=== PATIENT | female | born 1940 | race Caucasian/White ===

== ENCOUNTER 2018-05-13 16:09 | Inpatient (IN) | payer OTHER, MEDICARE ==
[2018-05-13] VITALS (74 sets, daily range): BP systolic 45–199; BP diastolic 26–130
[~2018-05-13] VITALS: Ht 157.5 cm; Wt 49.7 kg
--- NOTE | ~2018-05-13 | HC ---
[facility] [place] [address] CONSULTATION Name: GEOVANNY KAMARA Room #: 206- ADM IN M.R.#: [id number] Admission: 05/13/18 ������������������ Attend Phys: Malik Mann MD Discharge: ������������������ Date of : 38 Report #: [id number] THIS REPORT FOR: //name// CC: Malik Acevedo Box DATE OF SERVICE: 05/20/2018 HISTORY OF PRESENT ILLNESS: The patient is a 77-year-old white female admitted with dyspnea on exertion, chest pain, noted to have hypoxia down in the 80s. She apparently was noted to have an increase in her weight of 19 pounds and there was a question as to whether she was compliant with her Lasix and salt at home. She was admitted with acute hypoxic respiratory failure, had bilateral lung infiltrates and was intubated on 05/13/2018, thought that likely have had aspiration. She was noted to have a COPD exacerbation. She was placed on bronchodilator therapy, Solu-Medrol. Her course was complicated by atrial fibrillation for which she was on amiodarone. She was treated with antibiotics for aspiration pneumonia. She also has a recent history of a pulmonary embolism 4 months ago and continued on anticoagulation. She was able to be extubated on 05/17/2018. Has now been moved out of the ICU, but is significantly weak and is being seen in rehabilitation medicine consultation. Clinically, she has a critical illness myopathy. PAST MEDICAL HISTORY: Includes CHF and COPD. She had the prior pulmonary embolism as noted above. There is note of a history of diabetes, heart disease with cardiomyopathy. There is a history of gastric ulcers too. PAST SURGICAL HISTORY: Includes a gastric resection. MEDICATIONS: Please see the full medication listing. This includes vitamins, herbals, and supplements per report. ALLERGIES: No known drug allergies. HABITS: Past tobacco use for many years, quit approximately 4 months ago. No history of alcohol or recreational drug abuse is noted. SOCIAL HISTORY: Lives in a house alone, two steps in. Did not utilize gait aids, was not on oxygen. Daughter is noted to be a nurse practitioner. She does not know where her daughter works. REVIEW OF SYSTEMS: Complains of being overall weak. No headache, chest pain, shortness of breath, abdominal discomfort. Some dysuria, but discussed that she has the catheter in place. No focal extremity pain complaints. PHYSICAL EXAMINATION: [facility] [address] [place] [address] CONSULTATION Name: GEOVANNY KAMARA Room #: [facility] IN M.R.#: [id number] Admission: 05/13/18 ������������������ Attend Phys: Malik Mann MD Discharge: ������������������ Date of : 38 Report #: [id number] GENERAL: A 77-year-old white female, small statured, thin, a little groggy, but appropriate and able to follow basic 1 step commands. VITAL SIGNS: Her temperature is 98, pulse 66, respirations 18, blood pressure 134/53. Again, she did not know where her daughter worked. She has a latency to her responses, but can follow basic 1 step commands. She is on 2 liters nasal cannula. EXTREMITIES: She has functional range of motion of both upper extremities. Strength is grade 3+/5. DTRs are trace to 1. Lower extremities, no focal calf swelling, functional range of motion, strength is grade 3+/5. Trace to no distal lower extremity edema. Sit to stand is mod assist. Gait was mod assist with a front-wheeled walker, small steps. ASSESSMENT: A 77-year-old white female with the following problem list: 1. Critical illness myopathy. 2. 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 3. Acute hypoxic respiratory failure for which she was mechanically ventilated for multiple days in the ICU. 4. Bilateral pulmonary infiltrate. 5. Likely aspiration pneumonia. 6. Nonischemic cardiomyopathy. 7. Acute on chronic heart failure. 8. History of recent pulmonary embolism. 9. Past history of tobacco abuse until 4 months prior to admission. 10. Hypertension. 11. Chronic obstructive pulmonary disease. 12. Acute renal insufficiency, resolved. 13. Bipolar disorder. PLAN: The patient is a candidate for an acute [facility] inpatient rehabilitation stay. We can plan on admitting to the acute inpatient rehab góme[place] when medically cleared. Thank you for asking us to assist in this patient's care. ��������������������������������������������� ���������������������������������������� By: ��������������������������������������������� 1044 1130 Elliott Cristobal MD /DARLYN
[2018-05-13] MEDS ORDERED: ENTRESTO 24 MG1 EACH PO (16:19)
[2018-05-13] MEDS ORDERED: INVEGA6 MG PO (16:19)
[2018-05-13] MEDS ORDERED: POTASSIUM20 PO (16:20)
[2018-05-13] MEDS ORDERED: LASIX 40 MG TAB40 M2 PO (16:20)
[2018-05-13] MEDS ORDERED: XARELTO20 MG PO (16:20)
[2018-05-13] MEDS ORDERED: COREG6.25 MG PO (16:21)
[2018-05-13 16:47] LABS: ABSOLUTE NEUTROPHILS 7.6 thou/uL (1.4-8.2); BASOPHILS 1.4 % (0.0-2.0); HEMATOCRIT 44.7 % (37.0-47.0); HEMOGLOBIN 14.5 gm/dL (12.0-15.0); LYMPHOCYTES 46.8 % (24.0-44.0); MCH 33.4 pg (26.0-34.0); MCHC 32.4 g/dL (28.0-37.0); MONOCYTES 4.3 % (1.0-8.0); POLYS 47.5 % (36.0-66.0); RBC 4.34 mil/uL (4.20-5.00); RDW 14.4 % (10.5-14.5); WBC 16.1 thou/uL (4.0-11.0)
[2018-05-13 16:56] LABS: ANION GAP 14 mmol/L (7-16); BUN 27 mg/dL (7-18); CALCIUM 8.6 mg/dL (8.5-10.1); CHLORIDE 101 mmol/L (98-107); CO2 23 mmol/L (21-32); CREATININE 1.4 mg/dL (0.6-1.0); GLUCOSE 454 mg/dL (74-106); POTASSIUM 3.9 mmol/L (3.5-5.1); SODIUM 138 mmol/L (136-145)
[2018-05-13 17:03] LABS: ANISOCYTOSIS 1+; LARGE PLATELETS FEW; PLATELET COUNT 226 thou/uL (150-400); PLATELET ESTIMATE NORMAL
[2018-05-13 17:04] LABS: TROPONIN-I <0.06 ng/mL (<0.06)
[2018-05-13 17:21] LABS: BE(vivo) -12.2 mmol/L (-2 to +3); HCO3 20.2 mmol/L (22.0-26.0); PO2 89.5 mmHg (80.0-100.0); pH 7.036 (7.360-7.450); sO2 91.8 % (92.0-98.0)
[2018-05-13 19:36] LABS: BE(vivo) -7.7 mmol/L (-2 to +3); PCO2 48.7 mmHg (35.0-45.0); PO2 71.3 mmHg (80.0-100.0); sO2 91.3 % (92.0-98.0)
[2018-05-13 19:42] LABS: pH 7.232 (7.360-7.450)
--- NOTE | 2018-05-13 21:45 | NUR ---
CONSULTED TO PLACE A PICC. ORDER AND CONSENT NOTED. PATIENT BEGAN VOMITING AND ASPIRATED, PATIENT INTUBATED AND LINE PLACED. THE RIGHT UPPER ARM BASILIC WAS WIDLEY PATENT. A #5F TRIPLE LUMEN POWER PICC WAS PLACED AFTER A BEDSIDE TIMEOUT WAS COMPLETE. LINE WAS TRIMMED TO 37CM AND ADVANCED WITHOUT DIFFICULTY. A STAT CHEST XRAY ORDERED AND DR. MATTHEWS RELEASED LINE FOR USE
[2018-05-13 22:56] LABS: BE(vivo) -1.9 mmol/L (-2 to +3); HCO3 22.8 mmol/L (22.0-26.0); PCO2 38.9 mmHg (35.0-45.0); PO2 256.2 mmHg (80.0-100.0); pH 7.386 (7.360-7.450); sO2 99.6 % (92.0-98.0)
[2018-05-14] VITALS (62 sets, daily range): BP systolic 62–141; BP diastolic 32–67
[2018-05-14 05:27] LABS: HEMOGLOBIN 13.9 gm/dL (12.0-15.0); MCH 33.3 pg (26.0-34.0); MCHC 33.1 g/dL (28.0-37.0); MCV 100.6 fL (80.0-100.0); RBC 4.17 mil/uL (4.20-5.00); RDW 13.8 % (10.5-14.5)
[2018-05-14 05:40] LABS: BE(vivo) -3.9 mmol/L (-2 to +3); HCO3 19.4 mmol/L (22.0-26.0); PCO2 30.8 mmHg (35.0-45.0); PO2 142.7 mmHg (80.0-100.0); pH 7.417 (7.360-7.450); sO2 98.9 % (92.0-98.0)
--- NOTE | 2018-05-14 05:40 | NUR ---
ASSUMED CARE OF PATIENT FROM ER. ON BIPAP, MORE ALERT THAN EARLIER IN THE ER. FAMILY AT BEDSIDE. DR MATTHEWS CONSULTED AND NOTIFIED OF CRITICAL LABS IN ER. ORDERS OBTAINED TO REDRAW ABG AND PLACE PICC. ABG RESULTS CALLED TO [facility]. ORDERS RECEIVED. SHORTLY AFTER PATIENT STARTED VOMITING, INCREASED TACHYCARDIA AND TACHYPNEA. [facility] NOTIFIED. ORDERS TO INTUBATE ON HIS ARRIVAL. FAMILY UPDATED TO POC. [facility]RON TO [facility], PATIENT INTUBATED. BECAME HYPOTENSIVE, UNABLE TO PALPATE PULSE, CODE CALLED. PULSE THEN LOCATED WITHOUT IV MEDICINE. OG PLACED AND PICC. STARTED ON LEVO, PROPOFOL AND LASIX GTT. SEE DOCUMENTATION. ARTERIAL LINE ATTEMPTED BY DR MATTHEWS. UNABLE TO PLACE. MONITORING BLOOD PRESSURE CLOSELY THROUGH THE NIGHT. FAMILY AT BEDSIDE. AGREEABLE TO POC. O2 TITRATED PER PROTOCOL. LABS DRAWN THIS AM. WAITING ON RESULTS. WILL CALL ANY CRITICALS.
[2018-05-14 05:53] LABS: ALBUMIN 3.1 g/dL (3.4-5.0); CALCIUM 8.1 mg/dL (8.5-10.1); CREATININE 1.7 mg/dL (0.6-1.0); PHOSPHORUS 4.3 mg/dL (2.5-4.9); POTASSIUM 3.9 mmol/L (3.5-5.1); TOTAL BILIRUBIN 0.7 mg/dL (<0.1-1.0); TOTAL PROTEIN 7.4 g/dL (6.4-8.2)
--- NOTE | 2018-05-14 07:51 | EKG ---
[place] [address] [facility] [place] [address] ELECTROCARDIOGRAM REPORT Name: GEOVANNY KAMARA Room #: 250-P ADM IN M.R.#: [id number] ������������������ Admission: 05/13/18 ������������������ Attend Phys: Malik Mann MD Discharge: ������������������ Date of : 38 Report #: [id number] ����������������������������������������������������������������� [id number] THIS REPORT FOR: //name// [facility] ED Test Date: 2018-05-13 Test Time: 16:44:58 Pat Name: GEOVANNY KAMARA Department: Room: 250 Gender: F Information Systems Administrator: OTILIA : 1940 Requested By: Choco Gallardo Order Number: [id number] MD: King Yancey Measurements Intervals [place] Rate: 133 P: 79 GA: 139 QRS: 49 QRSD: 95 T: 259 QT: 317 QTc: 472 Interpretive Statements Sinus tachycardia LVH with secondary repolarization abnormality Poor R wave progression Baseline wander in lead(s) II,aVR,aVF No previous ECG available for comparison Electronically Signed On 05-14-2018 7:51:16 POURED WALL FOREMAN by King Yancey [email or web address] ��������������������������������������������� <ELECTRONICALLY SIGNED> ���������������������������������������� By: King Yancey MD, [facility] ��������������������������������������������� 05/14/18 0751 164 43 King Yancey MD, [facility] /EPI
--- NOTE | 2018-05-14 07:58 | EKG ---
[place] [address] [facility] [place] [address] ELECTROCARDIOGRAM REPORT Name: GEOVANNY KAMARA Room #: 250-P ADM IN M.R.#: [id number] ������������������ Admission: 05/13/18 ������������������ Attend Phys: Malik Mann MD Discharge: ������������������ Date of : 38 Report #: [id number] ����������������������������������������������������������������� [id number] THIS REPORT FOR: //name// [facility] Test Date: 2018-05-13 Test Time: 22:59:34 Pat Name: GEOVANNY KAMARA Department: Room: 250 P Gender: F Customer Insight Analyst: brigitte johns : 1940 Requested By: Yousif De La Vega Order Number: [id number] MD: King Yancey Measurements Intervals [place] Rate: 91 P: 88 CO: 133 QRS: 83 QRSD: 90 T: 228 QT: 379 QTc: 467 Interpretive Statements Sinus rhythm with atrial premature complexes Borderline right axis deviation LVH with secondary repolarization abnormality vs ischemia Anterior ST elevation, probably due LVH No previous ECG available for comparison Electronically Signed On 05-14-2018 7:58:02 CLINIC LPN by King Yancey [email or web address] ��������������������������������������������� <ELECTRONICALLY SIGNED> ���������������������������������������� By: King Yancey MD, [facility] ��������������������������������������������� 05/14/18 0758 2259 [id number] King Yancey MD, [facility] /EPI
--- NOTE | 2018-05-14 11:38 | 2DMMODE ---
[facility] [email or web address] [address] 2 D/M-MODE ECHOCARDIOGRAM Name: GEOVANNY KAMARA Room #: 250-P ADM IN M.R.#: [id number] ������������� Admission: 05/13/18 ������������� Attend Phys: Malik Mann MD Discharge: ��� ������������� ��� Date of : 38 Date of Service: 05/14/18 1138 �� Report #: [id number] �������� ��������������������������������������������[id number] THIS REPORT FOR: //name// APPROVED REPORT Study performed: 05/14/2018 10:53:52 EXAM: Comprehensive 2D, Doppler, and color-flow Echocardiogram Patient Location: ICU Room #: 250 Status: routine BSA: 1.51 HR: 102 bpm BP: 98/50 mmHg Rhythm: Sinus arrhythmia Other Information Study Quality: Good/low window Indications Short of breath, CHF, murmur. Hx: CHF EF 20-25%, non-ischemic cardiomyopathy, COPD, PE. 2D Dimensions RVDd: 25.01 mm IVSd: 9.41 (7-11mm) LVOT Diam: 20.40 (18-24mm) LVDd: 50.44 mm PWd: 9.46 (7-11mm) LVDs: 45.57 (25-40mm) Aortic Root: 26.93 mm Volumes Left Atrial Volume (Systole) Single Plane 4CH: 32.46 mL Single Plane 2CH: 48.22 mL LA ESV Index: 29.00 mL/m2 Aortic Valve AoV Peak Mason.: 1.85 m/s AO Peak Gr.: 13.65 mmHg LVOT Max P.83 mmHg LVOT Max V: 0.98 m/s ELIA Vmax: 1.73 cm2 Mitral Valve E/A Ratio: 0.6 MV Decel. Time: 220.18 ms [facility] [place] [address] [place] [address] 2 D/M-MODE ECHOCARDIOGRAM [facility] Room #: [address] [place] [address] IN .R.#: [id number] ������������� Admission: 05/13/18 ������������� Attend Phys: Malik Mann MD Discharge: ��� ������������� ��� Date of : 38 Date of Service: 05/14/18 1138 �� Report #: [id number] �������� ��������������������������������������������[id number] MV E Max Mason.: 0.45 m/s MV A Mason.: 0.78 m/s MV PHT: 63.85 ms IVRT: 72.66 ms Pulmonary Valve PV Peak Mason.: 1.33 m/s PV Peak Gr.: 7.05 mmHg Pulmonary Vein P Vein S: 0.46 m/s P Vein A: 0.34 m/s P Vein D: 0.43 m/s P Vein A Dur.: 90.0 msec P Vein S/D Ratio: 1.07 Tricuspid Valve TR Peak Mason.: 2.80 m/s RAP Estimate: 5.00 mmHg TR Peak Gr.: 31.30 mmHg PA Pressure: 36.00 mmHg Left Ventricle The left ventricle is normal size. There is normal left ventricular wall thickness. Left ventricular systolic function is severely decreased. LVEF is20- 25%. Mild diastolic dysfunction is present (impaired relaxation pattern). Right Ventricle The right ventricle is normal size. The right ventricular systolic function is low normal. Atria The left atrium size is normal. The right atrium size is normal. Aortic Valve The aortic valve is not well visualized, calcified but appears to have adequate excursion. No aortic regurgitation is present. Mitral Valve Mitral valve leaflets are mildly thickened. Mild mitral regurgitation. Tricuspid Valve The tricuspid valve is normal in structure. Mild to moderate tricuspid regurgitation. Estimated PAP is 35-40mmHg. Pulmonic Valve Pulmonic valve is not well visualized. [address] [address] 2 D/M-MODE ECHOCARDIOGRAM [facility]: [facility] Room #: 250-P [facility] IN M.R.#: [id number] ������������� Admission: 05/13/18 ������������� Attend Phys: Malik Mann MD Discharge: ��� ������������� ��� Date of : 38 Date of Service: 05/14/18 1138 �� Report #: [id number] �������� ��������������������������������������������[id number] Great Vessels The aortic root is normal in size. Ascending aorta is not well visualized. IVC is normal in size and collapses >50% with inspiration. Pericardium There is no pericardial effusion. <Conclusion> The left ventricle is normal size. Left ventricular systolic function is severely decreased. LVEF is20- 25%. Mild diastolic dysfunction is present (impaired relaxation pattern). The right ventricle is normal size. The left atrium size is normal. The aortic valve is not well visualized, calcified but appears to have adequate excursion. Mitral valve leaflets are mildly thickened. Mild mitral regurgitation. Mild to moderate tricuspid regurgitation. Estimated PAP is 35-40mmHg. The aortic root is normal in size. There is no pericardial effusion. ��������������������������������������������� <ELECTRONICALLY SIGNED> ���������������������������������������� By: Dong Maurer MD, FACC ��������������������������������������������� 05/14/18 1138 1138 1138 Dong Maurer MD, FACC /INF
--- NOTE | 2018-05-14 14:08 | NUR ---
Patient admits with COPD, Pulm edema, SOA, she is currently intubated and sedated. Met with dtr Sandra at bedside who reports she is DPOA, there are 7 children. Sandra reports patient has not been in hospital setting for years besides psych tx. She reports she last was inpatient psych 2 1/2 years ago at [facility]. Patient diagnosed with Bipolar. Dtr believes she has not been taking her medications correctly. Patient resides at independent home, all needs on one level. She ambulates independently, she does not drive. Dtr reports if she was to dc home today all she would need is assistance with her medications. At this time dtr anticipating she may need post acute care. She also may need assistive living in future. Dtr Sandra reports she worked with hospice in past and familiar with process of dc planning. Gave Sandra resources for post acute care and assisted living information.casemgt following.
--- NOTE | 2018-05-14 17:36 | EKG ---
[address] [address] ELECTROCARDIOGRAM REPORT Name: GEOVANNY KAMARA Room #: 250-P ADM IN M.R.#: [id number] ������������������ Admission: 05/13/18 ������������������ Attend Phys: Malik Mann MD Discharge: ������������������ Date of : 38 Report #: [id number] ����������������������������������������������������������������� [id number] THIS REPORT FOR: //name// [facility] Test Date: 2018-05-14 Test Time: 17:15:20 Pat Name: GEOVANNY KAMARA Department: Room: 250 P Gender: F Critical Care Nurse Specialist: Gail SHOEMAKER : 1940 Requested By: Sendy Suresh Order Number: [id number] MD: King Yancey Measurements Intervals [place] Rate: 113 P: 75 [place]: 122 QRS: 69 QRSD: 87 T: 239 QT: 355 QTc: 487 Interpretive Statements Sinus tachycardia Atrial premature complexes LVH with secondary repolarization abnormality vs ischemia Anterior ST elevation, probably due to LVH Borderline prolonged QT interval Compared to ECG 05/13/2018 22:59:34 No significant change was found Electronically Signed On 05-14-2018 17:36:05 BOBBIN HAULER by King Yancey [email or web address] ��������������������������������������������� <ELECTRONICALLY SIGNED> ���������������������������������������� By: King Yancey MD, [facility] ��������������������������������������������� 05/14/18 1736 1715 1715 King Yancey MD, [facility] /EPI
--- NOTE | 2018-05-14 19:16 | NUR ---
ASSESSMENTS DOCUMENTED. PT REMAINS ON VENT. NO CPAP TRAILS DONE TODAY. FOLLOWS COMMANDS WHEN SEDATION IS TURNED OFF. PROPOFOL GTT TO KEEP PT COMFORTABLE. LASIX GTT INFUSING. LEVO GTT TITRATED TO KEEP MAP >60. STARTED AMIO GTT AFTER EPISODE OF SVT AND NON-SUSTAINED RUN OF VTACH. GOOD URINE OUTPUT. FAMILY AT BEDSIDE THROUGH OUT THE DAY. BILATERAL WRIST RESTRAINTS. WILL CONTINUE TO MONITOR.
[2018-05-15] VITALS (59 sets, daily range): BP systolic 82–142; BP diastolic 40–70
--- NOTE | 2018-05-15 05:02 | NUR ---
ASSUMED CARE OF PATIENT AT 1900. RUNS OF ST NOTED, DR BETTENCOURT NOTIFIED. ORDERS RECIEVED FOR ADDITIONAL AMNIODERONE BOLUS. GIVEN ORDERED, HEART RATE IN THE 80'S-90'S. LEVO, PROPROFOL LASIX INFUSING. SEE GTT FLOWSHEET. DAUGHTER AT BEDSIDE, POC DISCUSSED, ALL QUESTIONS ANSWERED. PT TURNED Q2 WITH ORAL CARE GIVEN. NO S/S OF DISTRESS. WILL CONTINUE TO MONITOR.
[2018-05-15 08:30] LABS: BE(vivo) 0 mmol/L (-2 to +3); HCO3 24.3 mmol/L (22.0-26.0); PCO2 38.8 mmHg (35.0-45.0); PO2 109.9 mmHg (80.0-100.0); pH 7.415 (7.360-7.450); sO2 98.1 % (92.0-98.0)
--- NOTE | 2018-05-15 09:13 | NUR ---
If unable to extubate in next 24-48 hrs, recommend start glucerna 1.2 to reach final goal of 45ml/hr
[2018-05-15 10:12] LABS: HEMATOCRIT 39.8 % (37.0-47.0); HEMOGLOBIN 13.6 gm/dL (12.0-15.0); MCH 33.7 pg (26.0-34.0); MCHC 34.2 g/dL (28.0-37.0); MCV 98.8 fL (80.0-100.0); RBC 4.02 mil/uL (4.20-5.00); RDW 13.9 % (10.5-14.5); WBC 33.4 thou/uL (4.0-11.0)
[2018-05-15 10:21] LABS: POTASSIUM 3.1 mmol/L (3.5-5.1)
--- NOTE | 2018-05-15 10:42 | NUR ---
Met with patient who resides at home with spouse who is on oxygen, he has emphysema. Patient and spouse reside in independent home with all needs on one level in [facility]. Patient admits with chest pain. She is currently on oxygen she does not use a home. She reports independent with adls. She does not drive her spouse drives. She reports she has a public improvement inspector comes weekly to assist with cleaning and and any other needs identified. casemgt following for dc planning.
--- NOTE | 2018-05-15 20:46 | NUR ---
ASSESSMENTS DOCUMENTED. REMAINS ON VENT - FIO2 40%. PROPOFOL GTT FOR SEDATION. LEVO GTT TO KEEP MAP >60. LASIX GTT D/C'D PER CARIDOLOGY. NON-SUSTAINED RUNS OF VTACH THIS AFTERNOON. STARTED ON ELECTROLYTE PROTOCOL K+ REPLACED. AMIO GTT REMAINS AT 1. FAMILY AT BEDSIDE THROUGH OUT THE DAY.
--- NOTE | 2018-05-15 23:00 | NUR ---
2045 PT HAD SOME MORE NONSUSTAINED VTACH. NO OTHER SX/S WITH PT
[2018-05-16] VITALS (61 sets, daily range): BP systolic 103–134; BP diastolic 40–69
[2018-05-16 05:21] LABS: BE(vivo) -2.2 mmol/L (-2 to +3); HCO3 24.5 mmol/L (22.0-26.0); PCO2 49.6 mmHg (35.0-45.0); sO2 76.4 % (92.0-98.0)
[2018-05-16 05:23] LABS: PO2 44.9 mmHg (80.0-100.0); pH 7.311 (7.360-7.450)
--- NOTE | 2018-05-16 05:24 | NUR ---
PT REMAINS SEDATED WITH PROPOFOL ON THE VENT WITH 40% FIO2 SATS 99%. PT CONTINUES WITH LEVO GTT AND AMIO GTT. PT WITH CVP MONITORING BETWEEN 5-11. PT AM LABS TO BE DRAWN.
[2018-05-16 05:50] LABS: HEMATOCRIT 36.7 % (37.0-47.0); HEMOGLOBIN 12.3 gm/dL (12.0-15.0); MCH 33.1 pg (26.0-34.0); MCHC 33.5 g/dL (28.0-37.0); PLATELET COUNT 175 thou/uL (150-400); RDW 13.8 % (10.5-14.5); WBC 31.4 thou/uL (4.0-11.0)
[2018-05-16 05:59] LABS: CALCIUM 8.5 mg/dL (8.5-10.1); CREATININE 2.2 mg/dL (0.6-1.0); POTASSIUM 3.8 mmol/L (3.5-5.1)
[2018-05-16 07:07] LABS: ABSOLUTE NEUTROPHILS 26.7 thou/uL (1.4-8.2); ANISOCYTOSIS SLIGHT
[2018-05-16 08:31] LABS: BE(vivo) -0.9 mmol/L (-2 to +3); HCO3 24.7 mmol/L (22.0-26.0); PCO2 44.6 mmHg (35.0-45.0); PO2 132.2 mmHg (80.0-100.0); pH 7.362 (7.360-7.450); sO2 98.5 % (92.0-98.0)
[2018-05-16 11:41] LABS: BE(vivo) -1.6 mmol/L (-2 to +3); HCO3 26.9 mmol/L (22.0-26.0); PCO2 62.9 mmHg (35.0-45.0); PO2 90.7 mmHg (80.0-100.0); sO2 95.4 % (92.0-98.0)
[2018-05-16 12:35] LABS: pH 7.249 (7.360-7.450)
--- NOTE | 2018-05-16 19:31 | NUR ---
ASSESSMENTS DOCUMENTED. REMAINS OF AMIO GTT. PER DR. MATTHEWS REQUEST TO DECREASE TO 0.5 MG. UPDATED CARDIOLOGY AND AGREE WITH CHANGE. REMAINS ON PROPOFOL GTT. LEVO GTT TITRATED DOWN TO 5. FOLLOWS COMMANDS WHEN SEDATION TURNED OFF. ROSE PATENT. BLOOD SUGARS Q6HR. ORDERS TO START TUBE FEEDINGS PER DIETICIANS RECOMMENDATIONS. GOAL RATE 45 ML/HR. STARTED AT A RATE OF 10 ML/HR. FAMILY AT BEDSIDE THROUGH OUT THE DAY. WILL CONTINUE TO MONITOR.
[2018-05-17] VITALS (72 sets, daily range): BP systolic 100–142; BP diastolic 42–61
[2018-05-17 05:18] LABS: HCO3 28.5 mmol/L (22.0-26.0); PCO2 47.1 mmHg (35.0-45.0); PO2 135.1 mmHg (80.0-100.0); pH 7.399 (7.360-7.450); sO2 98.7 % (92.0-98.0)
[2018-05-17 06:44] LABS: HEMOGLOBIN 11.5 gm/dL (12.0-15.0); MCH 32.7 pg (26.0-34.0); MCHC 32.9 g/dL (28.0-37.0); MCV 99.3 fL (80.0-100.0); RBC 3.52 mil/uL (4.20-5.00); RDW 13.6 % (10.5-14.5); WBC 21.5 thou/uL (4.0-11.0)
[2018-05-17 06:50] LABS: CALCIUM 8.8 mg/dL (8.5-10.1); CREATININE 1.7 mg/dL (0.6-1.0); POTASSIUM 3.2 mmol/L (3.5-5.1)
[2018-05-17 11:36] LABS: BE(vivo) 1.5 mmol/L (-2 to +3); HCO3 25.9 mmol/L (22.0-26.0); PCO2 40.1 mmHg (35.0-45.0); PO2 129.3 mmHg (80.0-100.0); pH 7.428 (7.360-7.450); sO2 98.7 % (92.0-98.0)
[2018-05-17 14:53] LABS: POTASSIUM 3.5 mmol/L (3.5-5.1)
[2018-05-17] MEDS ORDERED: INVEGA SUS117 MG/0.7 IM (14:54)
--- NOTE | 2018-05-17 16:13 | NUR ---
FOLLOWIING FOR DC PLANNING. CLINICAL INFO REVIEWED. PT EXTUBATED THIS AFTERNOON AND ON NASAL CANNULA O2 AT PRESENT. THERAPY EVALS ORDERED WILL LIKELY NEED POST ACUTE REHAB OF SOME LEVEL.
[2018-05-18] VITALS (36 sets, daily range): BP systolic 98–146; BP diastolic 43–64
[2018-05-18 05:48] LABS: HEMATOCRIT 32.8 % (37.0-47.0); HEMOGLOBIN 10.8 gm/dL (12.0-15.0); MCH 32.8 pg (26.0-34.0); MCV 99.5 fL (80.0-100.0); RBC 3.29 mil/uL (4.20-5.00); RDW 13.8 % (10.5-14.5); WBC 20.6 thou/uL (4.0-11.0)
[2018-05-18 05:57] LABS: CALCIUM 8.9 mg/dL (8.5-10.1); CREATININE 1.3 mg/dL (0.6-1.0); POTASSIUM 3.9 mmol/L (3.5-5.1)
--- NOTE | 2018-05-18 06:00 | NUR ---
PT HAS SLEPT AT INTERVALS TONIGHT. CONFUSED. SHOUTING OUT THAT EVERYONE IS EVIL EXCEPT HER DAUGHTER. 800 CC UO THIS SHIFT. REMAINS IN SINUS RHYTHM HAD 2 RUNS OF SVT RATE 140 PT REMAINED ASYMPTOMATIC. DENIES PAIN BATHED WILL CONT TO MONITOR.
[2018-05-18 08:06] LABS: BE(vivo) 0.8 mmol/L (-2 to +3); HCO3 24.7 mmol/L (22.0-26.0); PCO2 37.1 mmHg (35.0-45.0); pH 7.441 (7.360-7.450); sO2 94.5 % (92.0-98.0)
--- NOTE | 2018-05-18 15:05 | NUR ---
PT PROGRESSING TODAY. ALERT TO PERSON, PLACE. COOPERATIVE ESPECIALLY WITH THE ENCOURAGMENT OF FAMILY MEMBERS AT BEDSIDE. SR WITH RARE PAC'S. SVT RESOLVED. 2L/NC, ENCOURAGED DEEP BREATHING/COUGH. TAKING SIPS OF ICE CHIPS/WATER IN AM, FAMILY MEMBER NOTED PT HAD A SLIGHT COUGH. IMMEDIATELY STARTED ON THICKENED LIQUIDS, NO FURTHER COUGH NOTED. ROSE WITH ADEQUATE URINE OUTPUT. DR. LORENZO CULP'D TRANSFER. DR. BYRON CULP'Celina TRANSFER TO CCU OR CC/TELE BASED ON PT EXTUBATION YESTERDAY, AMIODARONE INFUSING FOR PREVIOUS SVT WITH PLAN TO SWITCH PT TO AMIODARONE PO. BIPAP AT HS PRN. FAMILY UPDATED.
--- NOTE | 2018-05-18 18:10 | NUR ---
REPORT GIVEN TO CARLITA BRYAN. PT TRANSFERRED TO CCU PER BED ACCOMPANIED BY RN, ICU TAX LAWYER/TECH AND FAMILY MEMBER. PT CONSUMING FULL LIQUIDS AND THICKENED NEEDED. NO SWALLOWING DIFFICULTIES AND NO COUGH AT ALL.
--- NOTE | 2018-05-18 18:40 | NUR ---
PT CARE ASSUMED APPROX 1830. PT ALERT AND ORIENTED TO SELF AND PLACE. MOOD IS PLEASANT. VSS. DAUGHTER AT BEDSIDE AND ASSISTED PT WITH EATING. AMIO PO GIVEN BY ICU NURSE AND GTT STOPPED AT THIS TIME. 2LNC IN PLACE. NO DISTRESS NOTED.
--- NOTE | 2018-05-19 04:32 | NUR ---
ASSUMED CARE AT 1900. PT AO X 2. DAUGTHER AT BEDSIDE. PT DENIES PAIN, N/V/D. AMIO DRIP TURNED OFF AT 1930. PT ON ORAL AMIO. PT IS SR ON MONITOR WITH PACs AND PVCs. DENIES ANY SOB. PT HAS DENTURES BUT DO NOT FIT PERFECT. PT CONTINUES WITH ABX. OTHER ASSESSMENTS DOCUMENTED. WILL CONTINUE TO FOLLOW POC/.
[2018-05-19 04:58] VITALS: BP 123/55
[2018-05-19 05:48] LABS: CALCIUM 8.6 mg/dL (8.5-10.1); CREATININE 1.2 mg/dL (0.6-1.0); POTASSIUM 3.8 mmol/L (3.5-5.1)
[2018-05-19 08:08] VITALS: BP 141/64
[2018-05-19 10:12] LABS: BE(vivo) 2.9 mmol/L (-2 to +3); HCO3 26.5 mmol/L (22.0-26.0); PO2 78.8 mmHg (80.0-100.0); pH 7.473 (7.360-7.450); sO2 96.4 % (92.0-98.0)
[2018-05-19 11:51] VITALS: BP 140/49
[2018-05-19 15:37] VITALS: BP 147/55
[2018-05-19 20:02] VITALS: BP 138/68
--- NOTE | 2018-05-19 20:11 | NUR ---
ASSUMED CARE OF PT AT SHIFT CHANGE. ASSESSMENTS CHARTED. MEDS GIVEN PER MAY. PT ALERT TO SELF, PLACE, SITUATION, FORGETFUL OF TIME. VSS, NO C/O PAIN. PHYSICIAN ROUNDED ON PT THIS AM, ORDERED CT OF HEAD, ABG'S--SEE RESULTS. NO NEW ORDERS. NO S/SX OF CARDIAC OR RESP DISTRESS NOTED. O2 SATS REMAIN WNL ON 2L O2. FAMILY AT BEDSIDE THROUGHOUT SHIFT, UPDATED AND AWARE OF PT CARE. REDNESS REMAINS ON PT BUTTOCK AREA, Q2 TURNS ENFORCED AND BARRIER CREAM APPLIED. DENIES CONCERNS AT THIS TIME. WILL CONTINUE TO MONITOR AND FOLLOW POC.
--- NOTE | 2018-05-20 02:44 | NUR ---
TOOK OVER CARE OF PT AROUND 2129. PT ALERT2-3, FORGETFUL, DENIES PAIN OR NAUSEA. DAUGHTER AT BEDSIDE THROUGHOUT NIGHT. Q 2 TURNS, BARRIER CREAM TO BOTTOM. TOLERATING FULL LIQUID MECTAR THICK, MEDS CRUSHED. SERAQUIL STARTED THIS EVENING PER ORDERS. WILL CONTINUE TO MONITOR AND WITH POC.
[2018-05-20 04:22] VITALS: BP 124/59
[2018-05-20 07:51] VITALS: BP 134/53
[2018-05-20 09:06] LABS: ALBUMIN 2.3 g/dL (3.4-5.0); CALCIUM 8.8 mg/dL (8.5-10.1); CREATININE 1.1 mg/dL (0.6-1.0); POTASSIUM 3.8 mmol/L (3.5-5.1); TOTAL BILIRUBIN 0.5 mg/dL (<0.1-1.0); TOTAL PROTEIN 6.9 g/dL (6.4-8.2)
[2018-05-20] MEDS ORDERED: PACERONE 200 M200 M1 PO (11:56)
[2018-05-20] MEDS ORDERED: AUGMENTIN 875-1 EACH PO (11:56)
[2018-05-20] MEDS ORDERED: PULMICORT0.5 MG/21 INH (11:56)
[2018-05-20] MEDS ORDERED: SEROQUEL 25 MG25 M1 PO (11:56)
[2018-05-20] MEDS ORDERED: PREDNISONE 10 M10 M1 PO (11:56)
--- NOTE | 2018-05-20 14:22 | NUR ---
PT. ACCEPTED TO 5N AND WILL DISCHARGE TO ACUTE REHAB (5N) TODAY. DC ORDERS FINALIZED AND 5N NOTIFIED.
--- NOTE | 2018-05-20 14:30 | NUR ---
Patient accepted to 5N. patient initially not agreeable but spoke with dtr who sp with patient and patient now agreeable to 5n. 5N liason to call dtr Sandra to discuss acute rehab.
[2018-05-20 16:03] VITALS: BP 138/64
--- NOTE | 2018-05-20 17:02 | NUR ---
ASSUMED CARE OF PT AT 0645. PT LETHARGIC FROM SEROQUEL DOSE SLEEP AID. DAUGHTER/DPOA DOES NOT WANT PT TO HAVE ANY MORE. WORKED WITH THERAPY, KEEP ON THICK LIQUIDS, OK TO START PUREED DIET. PT TO TX TO REHAB.
== END 2018-05-20 17:00 | DRG 208 ==
LOC: ER 16:09 → EROBS 17:41 → ICU 17:41 → 2N 05-18 18:18
PROVIDERS: Internal Medicine Cardiovascular Disease; Nurse Practitioner; Nurse Practitioner Adult Health; Pediatrics; ADMIT Hospitalist
PROC: 5A09357 Assistance with Respiratory Ventilation, Less than 24 Consecutive Hours, Continuous Positive Airway Pressure (ICD-10-PCS; principal; 2018-05-13)
PROC: 02HV33Z Insertion of Infusion Device into Superior Vena Cava, Percutaneous Approach (ICD-10-PCS; principal; 2018-05-13)
PROC: 03HY32Z Insertion of Monitoring Device into Upper Artery, Percutaneous Approach (ICD-10-PCS; principal; 2018-05-13)
PROC: 4A133J1 Monitoring of Arterial Pulse, Peripheral, Percutaneous Approach (ICD-10-PCS; principal; 2018-05-13)
PROC: 4A133B1 Monitoring of Arterial Pressure, Peripheral, Percutaneous Approach (ICD-10-PCS; principal; 2018-05-13)
PROC: 0BH17EZ Insertion of Endotracheal Airway into Trachea, Via Natural or Artificial Opening (ICD-10-PCS; principal; 2018-05-13)
PROC: 5A1945Z Respiratory Ventilation, 24-96 Consecutive Hours (ICD-10-PCS; principal; 2018-05-13)
DX: J96.21 Acute and chronic respiratory failure with hypoxia (principal); I50.23 Acute on chronic systolic (congestive) heart failure; J69.0 Pneumonitis due to inhalation of food and vomit; N17.9 Acute kidney failure, unspecified; I42.9 Cardiomyopathy, unspecified; G72.81 Critical illness myopathy; J44.1 Chronic obstructive pulmonary disease with (acute) exacerbation; I47.1 Supraventricular tachycardia; J96.22 Acute and chronic respiratory failure with hypercapnia; I25.10 Atherosclerotic heart disease of native coronary artery without angina pectoris; I48.91 Unspecified atrial fibrillation; I11.0 Hypertensive heart disease with heart failure; F31.9 Bipolar disorder, unspecified; E87.6 Hypokalemia; E11.9 Type 2 diabetes mellitus without complications; Z87.11 Personal history of peptic ulcer disease; Z86.711 Personal history of pulmonary embolism; Z87.891 Personal history of nicotine dependence; Z79.01 Long term (current) use of anticoagulants; Z79.899 Other long term (current) drug therapy
CPT/HCPCS: 10078; 10081; 27000; 85026

== ENCOUNTER 2018-05-20 14:46 | Inpatient (IN) | payer OTHER, MEDICARE ==
[~2018-05-20] VITALS: Ht 142.2 cm; Wt 46.9 kg
--- NOTE | ~2018-05-20 | PLAN ---
[facility] [place] [address] REHAB UNIT PLAN OF CARE Name: GEOVANNY KAMARA Room #: 503-P ADM IN M.R.#: [id number] Admission: 05/20/18 ������������������ Attend Phys: Elliott Cristobal MD Discharge: ������������������ Date of : 36 Report #: [id number] THIS REPORT FOR: //name// CC: Elliott Cristobal Curtis Box DATE OF SERVICE: 05/21/2018 HISTORY AND PHYSICAL/POSTADMISSION PHYSICIAN EVALUATION Please see my full consult note dictation from yesterday. Also, see Rosalee Razo nurse practitioner dictation from earlier today. The patient originally was admitted with acute hypoxic respiratory failure, was on the mechanical ventilator for multiple days, bilateral pulmonary infiltrates, likely aspiration, acute on chronic heart failure. Treated on antibiotics, steroid taper along with diuretics. She had some dysphagia and is on a special diet with speech involved. She is on pureed nectar thick liquid diet. 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 She has been admitted for acute in-hospital inpatient rehabilitation. Please see the past medical history, habits, allergies, code status all as noted. MEDICATIONS: Reviewed and include vitamins, herbals, and supplements as well per report. SOCIAL HISTORY: As noted. She lives alone, 2 steps in, was not on any oxygen premorbidly. She was independent with ADLs and some of her IADLs were provided. She was still cooking. Daughter is noted to be a nurse practitioner. REVIEW OF SYSTEMS: Did not offer any current complaints of chest pain, short of breath with increased activity. No abdominal discomfort. No headache. No change in bladder and bowel. She has concerns regarding her swallowing. No focal extremity pain complaints. PHYSICAL EXAMINATION: VITAL SIGNS: Noted. She is a limited historian, will follow basic 1 step commands, definite latency to her responses. Chest has some coarse rhonchi, somewhat diffuse, regular rate and rhythm for cardiac, neck lymphadenopathy. HEENT: Appeared to be benign. ABDOMEN: Bowel sounds positive, nontender. GENITOURINARY: Deferred. She does have functional range of motion of both upper extremities with strength grade 3+/5. Lower extremities, probably a grade 3+/5. She might have some increased weakness of that right ankle a little more than the left. Functionally, she has needed assistance with basic mobility and has been more of a mod assist with basic transfers and short distance ambulation. She is needing nasal prong O2. [facility] [address] [place] [address] REHAB UNIT PLAN OF CARE Name: GEOVANNY KAMARA Room #: 503-P ADM IN M.R.#: [id number] Admission: 05/20/18 ������������������ Attend Phys: Elliott Cristobal MD Discharge: ������������������ Date of : 38 Report #: [id number] ASSESSMENT: 1. Critical illness myopathy. 2. Multifactorial encephalopathy. 3. Acute hypoxic respiratory failure, status post mechanical ventilation and prolonged ICU ____ bilateral pulmonary infiltrates with probable aspiration component. 4. Acute on chronic heart failure. 5. Nonischemic cardiomyopathy. 6. History of pulmonary embolism 5 months ago. 7. Hypertension. 8. Bipolar disorder. 9. Chronic obstructive pulmonary disease. 10. Tobacco abuse with cessation 4 months ago. 11. Poor appetite with protein calorie malnutrition. PLAN: The patient is admitted for acute in-hospital inpatient rehabilitation. From a postadmission physician evaluation perspective, there are no relevant changes since the preadmission screening. Please see the above review of prior and current medical and functional conditions and comorbidities. Please see the patient's previous and current functional status. As far as risk of complications, the patient has multiple medical comorbidities as noted above. Initial plan of care involves the interdisciplinary acute inpatient rehabilitation program with goal maximizing the patient's functional independence so that she can hopefully return back to her prior living situation. Prognosis is reasonably good with estimated length of stay probably at least 10 days to 2 weeks and likely longer if needed. Potential barriers would include the patient's multiple medical comorbidities and decreased functional status. The patient meets diagnostic criteria for an acute in-hospital inpatient rehabilitation stay. The patient meets medical necessity criteria and we will have the urban design consultant physicians involved. The patient does have the tolerance for therapies and has appropriate discharge goals back to the home setting. ��������������������������������������������� ���������������������������������������� By: ��������������������������������������������� [id number] [id number] Elliott Cristobal MD /julia
--- NOTE | ~2018-05-20 | PLAN ---
[facility] [place] [address] REHAB UNIT PLAN OF CARE Name: GEOVANNY KAMARA Room #: 503-P ADM IN M.R.#: [id number] Admission: 05/20/18 ������������������ Attend Phys: Elliott Cristobal MD Discharge: ������������������ Date of : 38 Report #: [id number] THIS REPORT FOR: //name// CC: Elliott Cristobal Curtis Box DATE OF SERVICE: 05/22/2018 PROGRESS NOTE/OVERALL PLAN OF CARE SUBJECTIVE: The patient was seen back today in followup. She was in good spirits. Temperature 36.3, pulse 70, respirations 20, blood pressure 140/70. She continues on nasal prong O2, but is only on 1 liter. No calf swelling. Transfers are contact guard. She did ambulate 75 feet contact guard without a device. She has been max assist for lower body dressing. She has mild comprehensive deficits. She continues on a nectar-thickened liquid diet, but has been advanced to mechanical soft. ASSESSMENT: 1. Critical illness myopathy. 2. Multifactorial encephalopathy. 3. Acute hypoxic respiratory failure, status post mechanical ventilation and prolonged ICU stay. 4. Acute on chronic heart failure. 5. Nonischemic cardiomyopathy. 6. History of pulmonary embolism 5 months ago. 7. Hypertension. 8. Bipolar disorder. 9. Chronic obstructive pulmonary disease. 10. Tobacco abuse with cessation 4 months ago. 11. Poor appetite with protein-calorie malnutrition. PLAN: The patient is involved in the interdisciplinary acute inpatient rehabilitation program. The overall plan of care is based on the preadmission screen, post-admission physician evaluation, and information garnered from therapy assessments. 1. Estimated length of stay is probably about a week or 10 days depending upon her progress. 2. Medical prognosis is reasonably good. 3. Anticipated interventions include the interdisciplinary acute inpatient rehabilitation program with PT, OT, speech, rehab nursing assisting regarding medication management, skin care prophylaxis, bowel and bladder issues and nursing education. We will have the consultant nurse physicians involved. 4. Anticipated functional outcomes would be for the patient to become modified independent with transfers, mobility, ADLs and improvement with cognition, so that she can hopefully return back to her prior living situation. [facility] [address] [place] [address] REHAB UNIT PLAN OF CARE Name: GEOVANNY KAMARA Room #: 503-P ADM IN M.R.#: [id number] Admission: 05/20/18 ������������������ Attend Phys: Elliott Cristobal MD Discharge: ������������������ Date of : 38 Report #: [id number] 5. Discharge destination would be back to the home setting where she lives in a house alone. 6. Expected therapy by discipline includes PT, OT, and speech. She does have dysphagia as well as cognitive concerns. She is to have PT, OT, and speech 1 hour per day each 5 days a week throughout the duration of the acute inpatient rehabilitation stay. ADDENDUM The patient was too fatigued on 05/21/2018 and did miss some therapies because of the fatigue. ��������������������������������������������� ���������������������������������������� By: ��������������������������������������������� [id number] Elliott Cristobal MD /julia
[~2018-05-20 14:46] MED LIST: AUGMENTIN 875-1 EACH PO; COREG6.25 MG PO; ENTRESTO 24 MG1 EACH PO; INVEGA SUS117 MG/0.7 IM; INVEGA6 MG PO; LASIX 40 MG TAB40 M2 PO; PACERONE 200 M200 M1 PO; POTASSIUM20 PO; PREDNISONE 10 M10 M1 PO; PULMICORT0.5 MG/21 INH; SEROQUEL 25 MG25 M1 PO; XARELTO20 MG PO
[2018-05-20 17:15] VITALS: BP 158/72
[2018-05-20 19:30] VITALS: BP 144/65
--- NOTE | 2018-05-20 19:54 | NUR ---
PT ARRIVED AT 1715 FROM CCU. ALERT AND ORIENTED *3, CONFUSED AND FORGETFUL. VITALS STABLE. DENIES PAIN. REDNESS AROUND HER BOTTOM, NO BREAKDOWN. PT INCONTINENT OF BOWEL (*3 STOOLS THIS EVENING, STOOLS ARE DARK BROWN LIQUID). ROSE DC'D PRIOR TO DC FROM CCU, POST ROSE MANAGEMENT STARTED, PT DID NOT VOID YET, REPORT PASSED ON TO [facility] NURSE. PT HAD HER FIRST PUREED DIET THIS EVENING AFTER BEING ON CLEAR LIQUIDS FOR OVER A WEEK, ATE 75% OF HER MEAL AND TOLERATED WELL. TOE NAILS THICK AND LONG, FAMILY REQUESTING CERTIFIED MEDICAL RECORDS CODER CONSULT. UP WITH 1 PERSON MIN ASSIST, GAITBELT AND WALKER. USING BEDPAN THIS EVENING R/T PT UNABLE TO MAKE IT TO THE BATHROOM ON TIME. Q1H VISUAL CHECKS. CALL LIGHT WITHIN REACH. FALL PRECAUTIONS IN PLACE
--- NOTE | 2018-05-21 02:29 | NUR ---
PT ALERT AND ORIENTED X 2. 02 ON AT 2L PER NC. SOB WITH ACTIVITY. HAS HAD 2 LOOSE STOOLS TONIGHT MIXED WITH URINE. BLADDER SCAN 0 AT 2230. RIGHT PICC LINE INTACT WITHOUT REDNESS, SWELLING OR DRAINAGE. SEROQUESL NOT GIVEN AT HS PER REQUEST OF DAUGHTER SINCE IT MAKES PT TOO DROWSY. PT TOOK HS MEDS CRUSHED IN APPLESAUCE WITHOUT DIFFICULTY. PT DENIES PAIN OR DISCOMFORT. BED ALARM ON FOR SAFETY. PT APPEARS TO BE SLEEPING ON HOURLY ROUNDS.
[2018-05-21 06:13] LABS: HEMATOCRIT 38.2 % (37.0-47.0); HEMOGLOBIN 12.5 gm/dL (12.0-15.0); MCH 32.5 pg (26.0-34.0); MCHC 32.7 g/dL (28.0-37.0); MCV 99.4 fL (80.0-100.0); RBC 3.84 mil/uL (4.20-5.00); RDW 13.3 % (10.5-14.5); WBC 14.5 thou/uL (4.0-11.0)
[2018-05-21 06:20] LABS: CALCIUM 8.6 mg/dL (8.5-10.1); POTASSIUM 3.4 mmol/L (3.5-5.1)
[2018-05-21 07:20] VITALS: BP 162/75
--- NOTE | 2018-05-21 07:58 | NUR ---
chart review, cm visited with pt at bedside this am. pt is a & o 2-3 with confusion and forgetfulness. intro to cm, dcp, team meeting, transition of care, home health and rehab. pt was able to stated " live alone, independ, take my own medication. do not use cane or walker. this water tast bad. kids take me to my appointment. 3 girls and 4 boys. have ring maker daughter shaila. also have lots of grandkids. have dentures and glassesd. no oxygen at home. quite smoking cold turkey 5 months ago. no home health or rehab before"/beck. will cont following as needed for dc needs.
--- NOTE | 2018-05-21 11:26 | NUR ---
ASSUMED CARE AT 0700. PATIENT IS ALERT AND ORIENTED X 2. PATIENT JAMES'S, SCARFER ARE EQUAL. LUNGS ARE CLEAR AND DEMINISHED. PATIENT IS ON 02 AT 2L PER N/C. PATIENT CONTINUES ON ABT PO. PATIENT IS TOLERATING ABT WITHOUT ADVERSE REACTIONS. PATIENT HAS RIGHT PICC LINE FOR IV ACCESS. PATIENT IS UP WITH 1, GAIT BELT AND WALKER. PATIENT IS INCONTINENT OF B & B AT TIMES. BRIEF ON WITH THERAPY. PATIENT UP IN BED FOR BREAKFAST. PATIENT REMAINS ON PUREED DIET WITH NECTAR THICK LIQUIDS. FALL AND SAFETY PROTOCOLS IN PLACE. DENIES PAIN AT THIS TIME. CONTINUES TO PROGRESS SLOWLY TOWARDS D/C GOALS. WILL CONTINUE TO MONITER.
[2018-05-21 19:15] VITALS: BP 142/69
--- NOTE | 2018-05-22 00:19 | NUR ---
PT ALERT AND ORIENTED X 2-3. AMB TO BR WITH WALKER AND ASSIST X 1 WITHOUT DIFFICULTY. 02 ON AT 1L PER NC. SOME SOB WITH ACTIVITY. RIGHT PICC LINE INTACT. PT TOOK HS MEDS IN CRUSHED IN APPLESAUCE WITHOUT DIFFICULTY. SEROQUEL NOT GIVEN AT HS PER REQUEST OF DAUGHTER. PT DENIES PAIN OR DISCOMFORT. BED ALARM ON FOR SAFETY. PT APPEARS TO BE SLEEPING ON HOURLY ROUNDS.
[2018-05-22 07:23] VITALS: BP 145/70
--- NOTE | 2018-05-22 09:44 | NUR ---
ASSUMED CARE AT 0700. PATIENT IS ALERT AND ORIENTED X2. PATIENT JAMES'S, CONTINUOUS MINER OPERATOR HELPER ARE EQUAL. LUNGS ARE CLEAR AND DEMINISHED. PATIENT REMAINS ON 02 AT 1L PER N/C. ABD IS SOFT WITH BSX4. PATIENT IS UP TO BATH ROOM TO VOID AND HAVE BM. PATIENT IS UP WITH ASSIST OF 1 WITH GAIT BELT AND WALKER. FALL AND SAFETY PROTOCOLS IN PLACE. DENIES ANY PAIN AT THIS TIME. CONTINUES TO PROGRESS SLOWLY TOWARDS D/C GOALS. WILL CONTINUE TO MONITER.
--- NOTE | 2018-05-22 15:56 | NUR ---
VASCULAR ACCESS ASKING FOR ORDER TO DC PICC, NO MEDS ORDERED. SPOKE WITH BABITA BRYAN. UPON ROUNDING REQUEST DENIED BY ANDREA LILLY, ORDERED TO REMAIN IN
[2018-05-22 19:00] VITALS: BP 97/53
[2018-05-22 21:01] VITALS: BP 114/61
--- NOTE | 2018-05-23 03:56 | NUR ---
assumed care at approx 1900 evening 05/22. pt lying in bed with head of bed elevated dozing off and on. 02 at 1L per n/c. pt assisted up to bathroom to void with pt moving slowly when ambulating. pt took hs meds with applesauce. pt appears to be sleeping soundly with hourly rounding checks. bed alarm on and call light in reach. will continue to monitor.
[2018-05-23 06:33] VITALS: BP 131/71
[2018-05-23 08:51] VITALS: BP 117/66
--- NOTE | 2018-05-23 10:32 | NUR ---
ASSUMED CARES AT 0700. PT AWAKE, ORIENTED *3. DENIES PAIN AT THIS TIME. VITALS REMAINED STABLE. LS CLEAR/DIMINISHED IN THE BASES, ON 2L OXYGEN VIA NC WITH SATS >95%. CONTINUES TO HAVE SOB WITH EXERSION. ABDOMEN SOFT AND ROUND, BM THIS AM. PICC LINE REMAINS INTACT AND PATENT. MILD BLE EDEMA, EXTREMITIES ELEVATED. YARD LABORER CONSULTED, HE WILL STOP BY THIS AFTERNOON TO SEE PATIENT AND TRIM TOENAILS. SKIN REMAINS INTACT. PT UP WITH 1 PERSON MIN ASSIST. AMBULATED 75FT THIS AM, SOB NOTED. Q1H VISUAL CHECKS. CALL LIGHT WITHIN REACH. FALL PRECAUTIONS IN PLACE
[2018-05-23 16:46] VITALS: BP 117/59
[2018-05-23 20:24] VITALS: BP 112/86
--- NOTE | 2018-05-24 01:27 | NUR ---
ASSUMED CARE AT APPROX 1900 EVENING 05/23. PT SITTING UP IN RECLINER AT CHANGE OF SHIFT RESTING AND WATCHING TV. PT ALERT AND ORIENTED X4, PLEASANT AND COOPERATIVE. PT ASSIST UP TO BATHROOM WITH QUAD CANE WITH PT TOLERATING WELL. PT TOOK HS MEDS WITHOUT DIFFICULTY. PT APPEARS TO BE SLEEPING SOUNDLY WITH HOURLY ROUNDING CHECKS. BED ALARM ON AND CALL LIGHT IN REACH. WILL CONTINUE TO MONITOR.
--- NOTE | 2018-05-24 01:50 | NUR ---
assumed care at approx 1900 evening 05/23. pt lying in bed with head of bed elevated resting. 02 at 2L per n/c. pt stated she was very tired and felt weak. pt requested to use bsc at bedtime. pt took hs meds with applesauce tolerating well. pt appears to be sleeping soundly with hourly rounding checks. bed alarm on and call light in reach. will continue to monitor.
[2018-05-24 05:27] LABS: ABSOLUTE NEUTROPHILS 13.8 thou/uL (1.4-8.2); BASOPHILS 0.3 % (0.0-2.0); HEMATOCRIT 37.8 % (37.0-47.0); HEMOGLOBIN 12.6 gm/dL (12.0-15.0); MCH 33.1 pg (26.0-34.0); MCHC 33.4 g/dL (28.0-37.0); MCV 99.2 fL (80.0-100.0); MONOCYTES 7.5 % (1.0-8.0); POLYS 79.2 % (36.0-66.0); RBC 3.81 mil/uL (4.20-5.00); RDW 13.6 % (10.5-14.5); WBC 17.4 thou/uL (4.0-11.0)
[2018-05-24 05:31] LABS: CALCIUM 8.2 mg/dL (8.5-10.1); PLATELET COUNT 475 thou/uL (150-400); POTASSIUM 3.7 mmol/L (3.5-5.1)
[2018-05-24 08:22] VITALS: BP 119/67
--- NOTE | 2018-05-24 19:34 | NUR ---
ASSUMED CARES AT 0700. PT LETHARGIC AND TIRED, C/O WEAKNESS. NAUSEA AND EMESIS THIS AM, ZOFRAN IV ADMINISTERED. BP LOW THIS AFTERNOON, SBP 84, ORDERS RECEIVED FOR 1L BOLUS NS, ADMINISTERED, SBP 140. PT WAS MORE ALERT AND INTERACTIVE AFTER THE 1L BOLUS. LS COARSE, O2 SATS >92 ON 2L OXYGEN VIA NC. ABDOMEN SOFT AND FLAT, *2 LOOSE STOOLS THIS AM, IMODIUM ADMINISTERED PER ORDER, PT HAD ANOTHER SMALL SOFT BM THIS AFTERNOON. PICC LINE RIGHT UPPER ARM REMAINS INTACT AND PATENT, ALL THREE LUMENS ASPIRATED FOR BLOOD. Q1H VISUAL CHECKS. CALL LIGHT WITHIN REACH. FALL PRECAUTIONS IN PLACE
[2018-05-24 19:54] VITALS: BP 125/66
--- NOTE | 2018-05-24 23:38 | NUR ---
PT ASSESSMENT COMPLETED AND VSS. MEDS GIVEN ORDERED AND WELL TOLERATED. FALL PRECAUTIONS IN PLACE. UP TO THE BATHROOM AND BSC WHEN FEELING WEEK. ONE ASST/GAIT/WALKER. SAT WNL ON 2L NC. SLEEPING WELL. WILL CONTINUE TO MONITOR FREQUENTLY.
[2018-05-25 06:28] VITALS: BP 124/52
[2018-05-25 07:30] VITALS: BP 123/66
--- NOTE | 2018-05-25 09:52 | NUR ---
ASSUMED CARE AT 0700. PATIENT IS ALERT AND ORIENTED X 2-3. PATIENT JAMES'S, SAMPLER RADIOACTIVE WASTE ARE EQUAL. LUNGS ARE CLEAR AND DEMINISHED. OCCASIONAL NON-PRODUCTIVE COUGH. ABD IS SOFT WITH BSX4. UP TO THE BR WITH GAIT BELT AND WALKER TO VOID. FALL AND SAFETY PROTOCOLS IN PLACE. DENIES PAIN. CONTINUES TO PROGRESS TOWARDS D/C GOALS. PATIENT UP IN W/C TO DINING ROOM FOR BREAKFAST. ST DID TRIAL BREAKFAST. WILL REVIEW OUTCOME WITH ST. PATIENT HAS PICC LINE IN HER RIGHT UPPER ARM. NO REDNESS OR SWELLING AT SITE. FLUSHES WELL. WILL CONTINUE TO MONITER. DAUGHTER IN ROOM.
[2018-05-25 21:35] VITALS: BP 143/53
--- NOTE | 2018-05-25 23:12 | NUR ---
PT ASSESSMENT COMPLETED AND VSS. MEDS GIVEN ORDERED AND WELL TOLERATED. FALL PRECAUTIONS IN PLACE. UP TO THE BATHROOM WITH ASST/GAIT/WALKER. SAT WNL ON NC. SLEEPING WELL. WILL CONTINUE TO MONITOR FREQUENTLY.
[2018-05-26 07:15] VITALS: BP 128/69
--- NOTE | 2018-05-26 11:58 | NUR ---
ASSUMED CARE OF PT AT 0715. PT IS A&OX4. WAS ON 2L OF O2/NC. PT 02 SAT HAVE BEEN STABLE BETWEEN 95%-97% ON ROOM AIR. DENIES PAIN. IS UP WITH 1 JANEL KAPADIA WALKER TO DINNING ROOM FOR ALL MEALS. FALL PRECAUTIONS & HOURLY ROUNDING CONTINUED THIS SHIFT. LABS & VITALS REVIEWED. CALL LIGHT WITHIN REACH. DAUGHTER AT BEDSIDE. WILL CONTINUE TO MONITOR.
[2018-05-26 20:02] VITALS: BP 146/73
--- NOTE | 2018-05-27 04:31 | NUR ---
ASSUMED CARE AT APPROX 1900 EVENING 05/27. PT LYING IN BED AT CHANGE OF SHIFT DOZING OFF AND ON. PT APPROPRIATE AND COOPERATIVE. PT TOOK HS MEDS WITH APPLESAUCE TOLERATING WELL. PT UP TO BATHROOM WITH 1 ASSIST AND WALKER. PT APPEARS TO BE SLEEPING SOUNDLY WITH HOURLY ROUNDING CHECKS. BED ALARM ON AND CALL LIGHT IN REACH. WILL CONTINUE TO MONITOR.
[2018-05-27 07:30] VITALS: BP 124/56
--- NOTE | 2018-05-27 10:29 | NUR ---
ASSUMED CARES AT 0700. PT AWAKE, ALERT AND ORIENTED*4. DENIES PAIN. C/O FATIGUE AFTER PHYSICAL THERAPY WELL FOOT PAIN. VITALS REMAIN STABLE. LS CLEAR/DIM WITH O2 SATS >92% ON RA. PICC LINE ON RIGHT UPPER ARM REMAINS INTACT AND PATENT. PT UP WITH 1 PERSON MIN ASSIST, GAITBELT AND WALKER AND TOLERATED WELL. FREQUENT VISUAL CHECKS. CALL LIGHT WITHIN REACH. FALL PRECAUTIONS IN PLACE
[2018-05-27 14:00] VITALS: BP 130/56
[2018-05-27 19:14] VITALS: BP 98/55
--- NOTE | 2018-05-27 23:43 | NUR ---
PT ASSESSMENT COMPLETED AND VSS. MEDS GIVEN ORDERED AND WELL TOLERATED. FALL PRECAUTIONS IN PLACE. UP TO THE BATHROOM WITH ASST/GAIT/WALKER. SLEEPING WELL. WILL CONTINUE TO MONITOR FREQUENTLY.
[2018-05-28 06:00] VITALS: BP 115/79
--- NOTE | 2018-05-28 11:48 | H ---
[facility] [place] [address] [place] [address] HISTORY AND PHYSICAL Name: GEOVANNY KAMARA Room #: 503-P ADM IN M.R.#: [id number] Admission: 05/20/18 ������������������ Attend Phys: Elliott Cristobal MD Discharge: ������������������ Date of : 38 Report #: [id number] THIS REPORT FOR: //name// CC: Elliott Cristobal Curtis Box DATE OF SERVICE: 05/20/2018 HISTORY OF PRESENT ILLNESS: This is a 77-year-old female who was admitted at [facility] with acute hypoxic respiratory failure, for which she required mechanical ventilation for multiple days; bilateral pulmonary infiltrates with likely aspiration; pneumonia component and [id number] heart failure and has now been admitted to Acute Inpatient Rehabilitation Unit for physical, occupational and speech therapies with the diagnosis of critical illness myopathy and multifactorial encephalopathy. The patient is on oral antibiotics and an oral steroid taper along with diuretics. She was intubated from 05/13/2018 through 05/17/2018 and has developed some dysphagia status post extubation, requiring a modified diet. Today, she reports general fatigue and weakness. She denies headache, dizziness, numbness or tingling. She is short of air with activity. She has a cough. She denies chest pain. She denies abdominal pain, nausea or constipation. She had a bowel movement today. PAST MEDICAL HISTORY: CHF; COPD; history of a PE 5 months ago; history of pneumonia and sepsis; hypertension; possible schizophrenia, reported Invega on medication list from home; history of gastric ulcers; type 2 diabetes and history of cardiomyopathy. HABITS: The patient quit smoking cigarettes approximately 4 months ago, had been an almost lifelong smoker prior. No alcohol or illicit drug use. SOCIAL HISTORY: She lives in a house alone. She has 2 steps to enter. She was not on any oxygen premorbidly. She denies use of assistive devices premorbidly. She was independent with ADLs. Some of her IADLs are provided. She does still cook. She denies falls. Her daughter is a nurse practitioner and is supportive. ALLERGIES: No known drug allergies. CURRENT MEDICATIONS: Xarelto 20 mg daily, Protonix 40 mg daily, prednisone 40 mg taper, potassium chloride 20 mEq daily, Invega 6 mg daily, Lasix 40 mg daily, carvedilol 6.25 mg twice a day, amiodarone 200 mg t.i.d., Seroquel 50 mg at bedtime, Augmentin 875 twice a day for 10 days and budesonide 0.5 mg twice a day inhalation. CODE STATUS: Full code. [address] [address] [facility]: [facility]P [facility] IN M.R.#: [id number] Admission: 05/20/18 ������������������ Attend Phys: Elliott Cristobal MD Discharge: ������������������ Date of : 38 Report #: [id number] REVIEW OF SYSTEMS: Remainder of 14-point review of systems is negative, except as listed in the HPI. PHYSICAL EXAMINATION: VITAL SIGNS: Blood pressure 162/75, pulse of 73, temperature 97.8 and respirations 20. She is 95% oxygen on room air. GENERAL: She is awake, alert. She is oriented to person, place and situation. She does not recall all events and is a poor historian. HEAD: Normocephalic. EYES: EOMs are intact. No icterus. ENT: No sinus tenderness, no pharyngitis. NECK: No lymphadenopathy. CARDIAC: Regular rate and rhythm. CHEST: Lungs have some coarse rhonchi in the bases, scattered. ABDOMEN: Bowel sounds are positive. Soft, nontender and nondistended. GENITOURINARY: No CVA tenderness. EXTREMITIES: She has functional range of motion of upper and lower extremities. No clonus. Strength is grossly 3+/5. She does have a mild right foot drop; she reports she had that at home prior. Negative Homans sign. Able to lift bilateral lower extremities and to gravity. She is transferring with mod assist, mod assist to ambulate a few small steps with a walker, mod assist for bed mobility and sitting at the edge of bed. Balance required min assist. She is min assist for feeding. NEUROLOGIC: Cranial nerves 2-12 grossly intact. Facies are equal and symmetrical. PSYCHIATRIC: Flat depressed affect. SKIN: Warm, dry and intact. ASSESSMENT: 1. Critical illness myopathy. 2. Multifactorial encephalopathy. 3. Acute hypoxic respiratory failure, status post mechanical ventilation and prolonged ICU stay. 4. Bilateral pulmonary infiltrates with probable aspiration component. 5. Xkroe-ls-vmasula heart failure. 6. Nonischemic cardiomyopathy. 7. History of pulmonary embolism 5 months ago. 8. Hypertension. 9. Bipolar disorder. 10. Chronic obstructive pulmonary disease. 11. Tobacco abuse, cessation 4 months ago. 12. Poor appetite/protein-calorie malnutrition. PLAN: The patient has been admitted to acute inpatient rehabilitation. She will have physical, occupational and speech therapies. She is on a pureed diet with nectar-thickened liquids. We will consult dietitian for supplement [address] [address] HISTORY AND PHYSICAL Name: GEOVANNY KAMARA Room #: 503-P ADM IN M.R.#: [id number] Admission: 05/20/18 ������������������ Attend Phys: Elliott Cristobal MD Discharge: ������������������ Date of : 38 Report #: [id number] recommendations. She will be followed by Pulmonary, Cardiology, Neuropsychology and Hospitalist services. She will have a team meeting today for discharge planning. willow worker services to assist. Please see extensive orders. ��������������������������������������������� <ELECTRONICALLY SIGNED> ���������������������������������������� By: VIJAYA Deng ��������������������������������������������� 05/28/18 1148 [id number] VIJAYA Deng /julia
--- NOTE | 2018-05-28 14:10 | NUR ---
team meeting, recommendation : dc , cont working with rehab, still on puree with honey thick liquids , hh ( nursing, pt, ot, st-vital stim, bathaid, sw). shower chair recommendation . will cont following as needed for dc needs.
[2018-05-28 20:00] VITALS: BP 122/54
--- NOTE | 2018-05-28 20:03 | NUR ---
ASSUMED CARE AT APPROX 0715. PATIENT A/O X4. DENIES PAIN. HUMMING ON EXPIRATION, SATS MAINTAINED ON ROOM AIR. PARTICIPATED IN THERAPIES. MEDS GIVEN PER ORDERS. FALL PRECAUTIONS IN PLACE. TOLERATING PUREE DIET, HONEY THICK LIQUIDS AT BEDSIDE, PATIENT EDUCATED ON SWALLOW PRECAUTIONS. DRESSING TO RIGHT UPPER ARM TRIPLE LUMEN PICC C/D/I. ROUNDED ON HOURLY. RESTING IN BED AT CHANGE OF SHIFT.
--- NOTE | 2018-05-29 01:56 | NUR ---
UP TO BATHROOM WITH WALKER AND STANDBY ASSIST. TOLERATING MEDS IN APPLESAUCE, AUGMENTIN TOO LARGE TO SWALLOW WITHOUT BEING CRUSHED. DRINKING HONEY THICK TEA. TURNING SELF TO SIDE WITH ENCOURAGEMENT/REMINDER.
[2018-05-29 06:22] VITALS: BP 119/58
[2018-05-29 08:49] VITALS: BP 122/52
--- NOTE | 2018-05-29 15:01 | NUR ---
Patient participated in community reintegration on 05/29/18 with SPEECH THERAPY. Refer to documentation by
[2018-05-29 20:47] VITALS: BP 117/51
--- NOTE | 2018-05-30 00:11 | NUR ---
BED ALARM, PATIENT HAS CALLED OUT TO USE BATHROOM TWICE THIS SHIFT. UP TO TOILET WITH GAIT BELT, WALKER, STANDBY ASSIST. SMALL BM AND YELLOW URINE. TOLERATING PILLS CRUSHED IN APPLESAUCE, GREATLY APPRECIATES INITIAL DOSE OF NYSTATIN. ORAL CARE BRUSHING TEETH AT SINK IMMEDIATELY AFTER BREATHING TREATMENT.
--- NOTE | 2018-05-30 04:12 | NUR ---
TURNING SELF IN BED, ON LEFT SIDE AT PRESENT
[2018-05-30 04:37] VITALS: BP 142/59
[2018-05-30 07:46] VITALS: BP 121/53
--- NOTE | 2018-05-30 11:39 | NUR ---
ASSUMED CARES AT 0700. PT AWAKE, ALERT AND ORIENTED *4 BUT FORGETFUL. DENIES PAIN. VITALS REMAIN STABLE. PT CONTINUES TO HAVE MILD BLE EDEMA, CONTINUES TO C/O PAINING CONES ON HER FEET. CONTINUES TO HAVE ORAL THRUSH, NYSTATIN S&S ADMINISTERED ORDERED. PT UP WITH 1 PERSON SBA FOR SAFETY, GAITBELT AND WALKER AND TOLERATES. REMAINS ON MECHANICAL CHOPPED DIET AND HONEY THICK FLUIDS R/T HIGH RISK FOR ASPIRATION. Q2H TURNS. Q1H VISUAL CHECKS. CALL LIGHT WITHIN REACH. FALL PRECAUTIONS IN PLACE
--- NOTE | 2018-05-30 15:30 | NUR ---
gordy notified by 5n team, and that pt daughter are possible wanting her to go skilled rehab some where rt daughters work [employer], and unable to do private duty at this time. gordy spoke with jennyfer with stated, "no level 2/special admission will be need for pt to go skilled at dc"/jennyfer. will cont following as needed for dc needs, family still wants to discuss plan and private duty before making a decision.
[2018-05-30 19:21] VITALS: BP 111/47
[2018-05-31 05:20] VITALS: BP 109/60
[2018-05-31 06:54] LABS: ABSOLUTE NEUTROPHILS 10.8 thou/uL (1.4-8.2); BASOPHILS 0.1 % (0.0-2.0); HEMATOCRIT 36.3 % (37.0-47.0); HEMOGLOBIN 12.1 gm/dL (12.0-15.0); LYMPHOCYTES 18.3 % (24.0-44.0); MCH 32.6 pg (26.0-34.0); MCHC 33.2 g/dL (28.0-37.0); MCV 98.1 fL (80.0-100.0); POLYS 73.6 % (36.0-66.0); RDW 13.8 % (10.5-14.5); WBC 14.7 thou/uL (4.0-11.0)
[2018-05-31 07:06] LABS: CALCIUM 8.5 mg/dL (8.5-10.1); CREATININE 1.2 mg/dL (0.6-1.0); MAGNESIUM 2.3 mg/dL (1.8-2.4); POTASSIUM 3.2 mmol/L (3.5-5.1)
[2018-05-31 07:30] VITALS: BP 140/82
[2018-05-31 07:59] LABS: LARGE PLATELETS FEW; PLATELET COUNT 394 thou/uL (150-400)
--- NOTE | 2018-05-31 13:54 | NUR ---
PATIENT'S DTR DORIS NOTED YESTERDAY CONCERNS THAT SHE MAY NOT BE ABLE TO KEEP PT FROM DRINKING THIN WATER AT HOME, SHE WORKS DURING THE DAY. SHE AND SISTER CLOVER DISCUSSED, AND CLOVER CALLED NURSE CAS LAST NIGHT, AND THIS MORNING TO DISCUSS. CLOVER IS POA, AND HAS STATED PLANS FOR PT TO GO TO SNF AT DC INSTEAD OF STRAIGHT HOME, DUE TO HER SWALLOWING CONCERNS AND RISK FOR ASPIRATION ON THIN LIQUIDS. THEY MISPLACED THE FIRST SNF LIST THAT WAS GIVEN TO THEM, AND ANOTHER ONE WAS DROPPED OFF WITH DORIS THIS MORNING. CLOVER ASKED ABOUT THE SNF THAT "ONLY HAS SKILLED CARE," STATING THAT SHE IS INTERESTED IN SENDING PT TO THAT FACILITY THE FIRST CHOICE. VERIFIED WITH SW THAT THIS IS [facility], AND WILL CONTACT THEIR SOUND RECORDING TECHNICIAN TO GET THE REFERRAL PROCESS STARTED TO THAT FACILITY. PLAN IS TO DC TO SNF ON SUNDAY, IF PT IS UNABLE TO [facility] TO THIN AND REG DIET AFTER SWALLOW VIDEO ON SUNDAY.
--- NOTE | 2018-05-31 15:18 | NUR ---
DC PLANNING: PT'S DAUGHTER CLOVER JUST CALLED NURSE INVENTORY CONTROL CLERK WITH A LIST OF SNF'S THAT SHE WOULD LIKE US TO CHECK ON FOR BED AVAILABILITY AND TRY TO GET PT IN TO ONE OF THESE PRIORITIZED BELOW AT DE ON SUNDAY: 1. [facility]. [facility] 4. [facility] 5. [facility]. THESE ARE PRIORITIZED IN ORDER OF FAMILY'S PREFERENCE. HAVE REACHED OUT TO CM.
--- NOTE | 2018-05-31 17:25 | NUR ---
FAXED REFERRAL TO [facility] SPOKE WITH SHADI IN ADM. SHE RECEIVED REFERRAL AND REVIEWED AND WILL NOT BE ABLE TO ACCEPT PT, BECAUSE PT. IS ON SEROQUEL AND THEY DO NOT TAKE PT'S ON PSYCH MEDS. PT, ALSO INTERESTED IN [facility], [facility] AND [facility]. DCP WILL F/U WITH THE OTHER FACILITIES ON SUNDAY. DCP TO FOLLOW.
--- NOTE | 2018-05-31 17:58 | NUR ---
ASSUMED CARE OF PATIENT AT APPROXIMATELY 0715. PATIENT A&OX4 WITH PERIODS OF FORGETFULNESS. VITAL SIGNS STABLE PATIENT HAD NO COMPLAINTS OF PAIN DURING THIS SHIFT. PATIENT WAS ABLE TO TAKE ALL MEDS WHOLE IN APPLESAUCE DURING THIS SHIFT. PARTICIPATED IN ALL SCHEDULED THERAPYS THIS SHIFT. PATIENT REQUIRED CUES TO TURN Q2H. FAMILY BROUGHT IN SHOES PER THERAPIST REQUEST. FAMILY VISITS THROUGHOUT THE DAY. FAMILY EXPRESSED CONCERN ABOUT PATIENT'S COMPLIANCE WITH DIETARY CONSISTANCIES FOLLOWING DISCHARGE. CALL LIGHT IS WITHIN REACH AND SAFETY MEASURES IN PLACE AT THIS TIME. WILL CONTINUE TO MONITOR PATIENT.
[2018-05-31 20:30] VITALS: BP 104/63
--- NOTE | 2018-06-01 02:29 | NUR ---
CALLS APPROPRIATELY FOR UP TO TOILET WITH GAIT BELT AND ROLLATOR WALKER. PILLS WITH APPLESAUCE, SHE STATED THAT IT'S A GOOD IDEA TO SKIP AMIODARONE WITH BP ONLY 104/63; WILL RECHECK AGAIN WITH 0600 DOSE. APPRECIATES NYSTATIN. ASKED FOR SOMETHING TO DRINK AND IS NUCH HAPPIER WITH HONEYTHICK APPLE JUICE AND TEA RATHER THAN HONEY THICK WATER.
[2018-06-01 08:47] VITALS: BP 145/80
--- NOTE | 2018-06-01 11:34 | NUR ---
ASSUMED CARE AT APPROX 0715. PATIENT A/O X4. REPORTS DIDN'T SLEEP GOOD AND THAT IS NORMAL FOR HER. TOOK SEROQUEL AT NIGHT SCHEDULED. DENIES PAIN. HUMMING ON EXPIRATION, SATS MAINTAINED ON ROOM AIR. VSS. ST WORKED ON VITAL STEM WITH PT THIS AM. MEDS GIVEN PER ORDERS WITH HONEY THICK LIQUIDS. UPPER ARM TRIPLE LUMEN PICC C/D/I. ASSISTED TO BATHROOM 2X. UP WITH CGA/GB/WALKER. CONT B&B, USES CALL LIGHT APPROPRIATE TO BATHROOM. HAD LARGE SOFT BM 2X TODAY. DENIES PAIN, SOB. DAUGHTER WAS HERE WITH PT THIS AM. HAS BRIGHT AFFECT AND GOOD APPETITE THIS AM. ASSISSTED PT TO WASH UP AT THE SINK AND DRESSING THIS AM. RESTING IN RECLINER. FALL PRECAUTION IN PLACE. CALL LIGHT WITHIN REACH. CHECK FREQUENLY FOR SAFETY AND NEEDS. WILL CONTINUE TO MONITOR.
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
[2018-06-01 16:30] VITALS: BP 138/72
[2018-06-01 19:35] VITALS: BP 150/58
--- NOTE | 2018-06-02 05:54 | NUR ---
CALLS FOR ASSIST UP TO TOILET WITH GAIT BELT, WALKER, STANDBY ASSIST, AND SLIDE-ON SHOES FROM HOME. TOLERATING MEDS IN APPLESAUCE AND HONEY THICK LIQUIDS. PREFERS APPLE JUICE AND TEA TO WATER. NYSTATIN CONTINUES AND IS EASING THRUSH
[2018-06-02 07:15] VITALS: BP 132/64
--- NOTE | 2018-06-02 18:38 | NUR ---
ASSUMED CARE OF PATIENT AT APPROXIMATELY 0730. PATIENT IS A&O X4, VITAL SIGNS STABLE. PATIENT AMBULATES WITH 1 ASSIST, GAIT BELT AND WALKER. PATIENT USES CALL LIGHT APPROPRIATELY AND FOLLOWS FALL AND ASPIRATION PRECAUTIONS APPROPRAITELY. PATIENT ENCOURAGED TO DRINK FLUIDS THROUGH OUT SHIFT. FAMILY VISITS THROUGHOUT SHIFT. CALL LIGHT WITHIN REACH AND FALL PRECUATIONS IN PLACE. NURSE WILL CONTINUE TO MONITOR PATIENT.
[2018-06-02 20:20] VITALS: BP 116/69
--- NOTE | 2018-06-02 22:37 | NUR ---
PT ASSESSMENT COMPLETED AND VSS. MEDS GIVEN ORDERED AND WELL TOLERATED. FALL PRECAUTIONS IN PLACE. UP TO THE BATHROOM WITH ASST/GAIT/WALKER. REMINDED PT TO LOCK AND UNLOCK BRAKES ON WALKER. VOIDING WELL. DENIES NEEDS. SLEEPING WELL. WILL CONTINUE TO MONITOR FREQUENTLY.
[2018-06-03 09:00] VITALS: BP 115/59
--- NOTE | 2018-06-03 09:15 | NUR ---
PT WENT DOWN TO GET VIDEO SWALLOW. PT TOLERATED 50% OF BREAKFAST. NO COUGHING.
--- NOTE | 2018-06-03 10:47 | NUR ---
FAXED REFERRAL TO [facility] LEFT MSG WITH ADM. JABIER (PARISH) THAT PT. IS DISCHARGING TOMORROW 06/04. PT'S FAMILY HAS 3 OTHER FACILITIES THEY ARE INTERESTED IN. DCP TO FOLLOW.
--- NOTE | 2018-06-03 11:30 | NUR ---
PT ABLE TO TAKE PO MEDS WITHOUT COUGHING. TOOK MEDS WHOLE WITH HONEY THICKEN TEA. PT HAS BEEN UP WALKING WITH THERAPY VIA ROLLER WALKER AND GAIT BELT. GAIT STEADY. LUNGS CLEAR. DENIES ANY PAIN.
--- NOTE | 2018-06-03 15:37 | NUR ---
FAMILY IS HERE TO VISIT, PT RESTING IN BED.
--- NOTE | 2018-06-03 16:40 | NUR ---
FAXED REFERRAL TO [facility] SPOKE WITH DEJAH IN ADM. SHE RECEIVED REFERRAL AND REVIEWED AND WILL BE ABLE TO ACCEPT PT. AT DISCHARGE. FAXED REFERRAL TO [facility] LEFT MSG WITH LAYTON IN ADM. TO REVIEW AND DC TOMORROW. FAXED REFERRAL TO [facility] WITH ALONDRA IN ADM. TO REVIEW AND ANTICIPATE DC TOMORROW 06/04.
--- NOTE | 2018-06-03 17:30 | NUR ---
PT HAD THIN LIQUID FOR DINNER WITHOUT ANY ISSUES WITH COUGHING.
[2018-06-03 17:40] VITALS: BP 82/43
--- NOTE | 2018-06-03 18:04 | NUR ---
PT SLEEPING, AWOKE PT TO OBTAIN BP FOR COREG ADM. BP 82/43 PULSE 70. NO COMPLAINTS OF DIZZINESS. PT STATED THAT IS NORMAL FOR HER TO HAVE LOW BP.
[2018-06-03 20:17] VITALS: BP 91/53
--- NOTE | 2018-06-04 05:10 | NUR ---
TOLERATING SIPS OF WATER AND CAPSULES WITH WATER. CALLING FOR ASSIST UP TO TOILET WITH STANDBY ASSIST, GAIT BELT, AND 4 WHEEL WALKER THAT HAS BRAKE INSTRUCTIONS PRINTED ON ITS SEAT. PLEASANT AND LOOKING FORWARD TO GOING HOME TODAY.
[2018-06-04 07:15] VITALS: BP 100/55
[2018-06-04 08:33] VITALS: BP 115/63
[2018-06-04 08:51] VITALS: BP 115/63
[2018-06-04] MEDS ORDERED: PROTONIX40 M1 PO (09:02)
[2018-06-04] MEDS ORDERED: XARELTO20 MG PO (09:02)
[2018-06-04] MEDS ORDERED: PROBIOTIC1 EAC1 PO (09:02)
[2018-06-04] MEDS ORDERED: COREG6.25 MG PO (09:02)
[2018-06-04] MEDS ORDERED: LASIX 40 MG TAB40 M2 PO (09:02)
[2018-06-04] MEDS ORDERED: PACERONE 200 M200 M1 PO (09:02)
[2018-06-04] MEDS ORDERED: ALBUTEROL2.5 MG/31 INH (09:08)
[2018-06-04] MEDS ORDERED: NEBULIZER MISCELL (09:08)
--- NOTE | 2018-06-04 09:28 | NUR ---
ASSUMED CARE AT APPROX 0715. PATIENT A/O X4. REPORTS DIDN'T SLEEP GOOD AND THAT IS NORMAL FOR HER. DENIES PAIN,SOB. HUMMING ON EXPIRATION, SATS MAINTAINED ON ROOM AIR. VSS ON ROOMAIR. PT IS ON THIN LIQUID WITH SUPERVISION. UP TO DINNING ROOM ATE 75% BREAKFAST.UPPER ARM TRIPLE LUMEN PICC C/D/I. ASSISTED TO BATHROOM 2X, PT IS CONTINUE TO BE ON LASIX SCHEDULE. UP WITH CGA/GB/WALKER. CONT B&B, USES CALL LIGHT APPROPRIATE TO BATHROOM. HAD SMALL SOFT BM THIS AM. HAS BRIGHT AFFECT AND GOOD APPETITE THIS AM. ASSISSTED PT TO WASH UP AT THE SINK AND DRESSING THIS AM. RESTING IN RECLINER NOW. WILL BE DISCHARGE TODAY. NOTIFIED ANDREA TO WORK ON DISCHARGE MEDICATIONS. FINISHED WITH PREDNISONE TODAY PER ANDREA. REASSESSMENT PER CHART. NO LAB TODAY. FALL PRECAUTION IN PLACE. CALL LIGHT WITHIN REACH. CHECK FREQUENLY FOR SAFETY AND NEEDS. WILL CONTINUE TO MONITOR.
--- NOTE | 2018-06-04 10:35 | NUR ---
pt has been accepted to [facility] and [facility] this am. will discuss with pt/family as to which is 1st choice. per family [facility] is 1st choice. chart copy requested, bedside nurse to call report to [facility].
--- NOTE | 2018-06-04 10:48 | NUR ---
PT. DISCHARGING TODAY TO [facility]. FAXED DC ORDERS/SUMMARY TO FACILITY SPOKE WITH DEJAH IN ADM. SHE RECEIVED DC ORDERS AND ARRANGED TRANSPORT VIA [facility] FOR 1300 TODAY. LEFT MSG WITH DTR (CLOVER) TIME OF TRANSPORT. UNIT NOTIFIED AND CHART COPY PER US. RN TO CALL REPORT TO [phone].
--- NOTE | 2018-06-04 12:19 | NUR ---
team meeting, upgraded to thin [employer], dc to [facility] today.
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
== END 2018-06-04 13:10 | DRG 91 ==
PROVIDERS: Nurse Practitioner; ADMIT Physical Medicine & Rehabilitation
DX: G72.81 Critical illness myopathy (principal); J96.01 Acute respiratory failure with hypoxia; G92 Toxic encephalopathy; J96.02 Acute respiratory failure with hypercapnia; I50.23 Acute on chronic systolic (congestive) heart failure; I42.9 Cardiomyopathy, unspecified; E46 Unspecified protein-calorie malnutrition; I11.0 Hypertensive heart disease with heart failure; F31.9 Bipolar disorder, unspecified; J44.9 Chronic obstructive pulmonary disease, unspecified; Z60.2 Problems related to living alone; L60.3 Nail dystrophy; B35.1 Tinea unguium; F01.50 Vascular dementia, unspecified severity, without behavioral disturbance, psychotic disturbance, mood disturbance, and anxiety; R53.81 Other malaise; E87.6 Hypokalemia; R13.10 Dysphagia, unspecified; D72.829 Elevated white blood cell count, unspecified; T38.0X5A Adverse effect of glucocorticoids and synthetic analogues, initial encounter; R73.9 Hyperglycemia, unspecified; Z86.711 Personal history of pulmonary embolism; Z87.01 Personal history of pneumonia (recurrent); Z68.23 Body mass index [BMI] 23.0-23.9, adult; Z87.891 Personal history of nicotine dependence; Y92.89 Other specified places as the place of occurrence of the external cause
CPT/HCPCS: 10112